=== PATIENT | male | born 1990 | race African-American/Black ===

== ENCOUNTER 2016-12-14 12:15 | Emergency (ER) | payer SELFPAY ==
[~2016-12-14] VITALS: Ht 167.6 cm; Wt 70.3 kg
--- NOTE | ~2016-12-14 | EKG ---
PATIENT: JOSE MIGUEL MATA UNIT #: [id number] Ventricular Rate: 68 BPM Atrial Rate: 68 BPM P-R Interval: 188 ms QRS Duration: 84 ms Q-T Interval: 350 ms QTC Calculation(Bezet): 372 ms P [place]: 49 degrees Calculated R [place]: 54 degrees Calculated T [place]: 26 degrees Diagnosis Line: Normal sinus rhythm Diagnosis Line: Normal ECG Diagnosis Line: No previous ECGs available Diagnosis Line: Confirmed by TYRONE MACKENZIE MD ([id number]) on Diagnosis Line: 12/19/2016 8:21:40 AM INTERPRETING MD: GURDEEP BARBER
--- NOTE | ~2016-12-14 | CT71 ---
[facility] A Service [facility] RADIOLOGY TEXT RESULTS PATIENT: JOSE MIGUEL MATA LOCATION: SED : [birth year] UNIT #: [id number] AGE: [address]: Raymundo Ramírez MD SEX: M ORDER DR: [id number] [place] [id number] E MR#: [id number] Acc #: [id number] NAME: JOSE MIGUEL MATA : 1990 SEX: M STUDY DATE/TIME: 12/14/2016 13:30 UNIT: SED ROOM: STUDY DESCRIPTION: CT Head Wo Contrast Attending Physician: Raymundo Ramírez M.D. Ordering Physician: Raymundo Ramírez M.D. MEDICAL IMAGING REPORT This report is preliminary unless electronic signature is present. EXAM Head CT no contrast 12/14/[address] 07/17/2010. HISTORY Dizziness since this morning. Syncope this morning. TECHNIQUE Axial noncontrast images were obtained from the skull base to the vertex. This CT exam was performed with one or more of the following radiation dose reduction techniques: automatic exposure control, adjustment of mA and/or kV according to patient size, and iterative reconstruction. FINDINGS Ventricular size and configuration are normal. There is no evidence of acute infarct or hemorrhage. There are no extraaxial fluid collections. No mass lesion or mass effect is seen. There are no skull fractures. IMPRESSION Normal noncontrast head CT. Dictated by... Junior Jerez M.D. THIS IS AN ELECTRONICALLY VERIFIED REPORT Junior Jerez M.D. at 12/20/2016 5:05 PM TEV/pcl [facility] A Service [facility] RADIOLOGY TEXT RESULTS PATIENT: JOSE MIGUEL MATA LOCATION: SED : 90 UNIT #: [id number] AGE: [address]: Raymundo Ramírez MD SEX: M ORDER DR: TD: 12/14/2016 17:02 JOB #: [id number] MEDICAL IMAGING REPORT Page 1 of 1
[~2016-12-14 12:15] MED LIST: AMOXICILLIN500 M1 PO; CLARITHROMYCIN500 MG PO; NAPROXEN PO; NO MEDICATIONS; PRILOSEC20 M1 PO; ZOFRANODT PO
== END 2016-12-14 14:29 | disposition home or self-care (01) ==
LOC: SED 12:15
DX: R42 Dizziness and giddiness (principal); R53.1 Weakness; J45.909 Unspecified asthma, uncomplicated; F17.200 Nicotine dependence, unspecified, uncomplicated
CPT/HCPCS: 70450; 96361; 96374; 99284; J2405